=== PATIENT | female | born 1990 | race Two or more races ===

== ENCOUNTER 2017-11-26 17:38 | Emergency (ER) | payer MEDICAID ==
[~2017-11-26] VITALS: Ht 152.4 cm; Wt 56.7 kg
[2017-11-26 17:51] VITALS: Ht 152.4 cm; Wt 56.7 kg
[2017-11-26 19:47] VITALS: BP 139/83
== END 2017-11-26 19:47 | disposition home or self-care (01) ==
LOC: ED 17:38
DX: Z20.2 Contact with and (suspected) exposure to infections with a predominantly sexual mode of transmission (principal); F10.10 Alcohol abuse, uncomplicated
CPT/HCPCS: 87491; 87591; J0696